=== PATIENT | female | born 1955 | race African-American/Black ===

== ENCOUNTER 2017-07-27 20:59 | Inpatient (IN) | payer MEDICARE, SELFPAY ==
[2017-07-27] MEDS ORDERED: Albuterol Sulfate 2.5 mg/0.5 ml Neb ONE ×2 (21:27→21:30)
[2017-07-27] MEDS ORDERED: Magnesium Sulfate 2 GM/NS 0.9% 50 ML BAG ONE (21:28)
[2017-07-27] MEDS ORDERED: methylPREDNISolone Sod Succ/PF 125 MG/2 ML VIAL ONE (21:28)
[2017-07-27] MEDS ORDERED: Water For Inject, Bacteriostat 30 ML ONE (21:28)
[2017-07-27] MEDS ORDERED: Ipratropium Bromide 2.5 ml Neb ONE (21:30)
[2017-07-27 21:31] LABS: #Basophils 0.1 thou/uL (0.0-0.2); #Lymphocytes 1.4 thou/uL (1.20-3.40); #Monocytes 0.4 thou/uL (0.11-0.59); %Basophils 0.7 % (0.0-1.0); %Eosinophils 8.5 % (0.0-10.0); %Lymphocytes 12.1 % (21.0-51.0); %Monocytes 3.3 % (0.0-10.0); %Neutrophils 75.4 % (42.0-75.0); Hemoglobin 14.4 g/dL (12.0-16.0); Mean Corpuscular HGB CONC 32.8 g/dL (32.0-36.0); Mean Corpuscular Hemoglobin 29.5 pg (27.0-31.0); Mean Corpuscular Volume 89.9 fl (81.0-99.0); Mean Platelet Volume 8.1 fL (7.4-10.4); Platelet Count 308 thou/uL (130-400); Red Blood Cell (RBC) Count 4.87 mill/uL (4.20-5.40); White Blood Cell (WBC) Count 11.9 thou/uL (4.8-10.8)
[2017-07-27 21:46] LABS: ALT (SGPT) 22 U/L (8-55); AST (SGOT) 30 U/L (5-34); Albumin 3.4 g/dL (3.5-5.0); Alkaline Phosphatase 93 U/L (40-150); Anion Gap 13 mmol/L (10-20); BUN (Urea Nitrogen) 14 mg/dL (9.8-20.1); Bilirubin, Total 0.3 mg/dL (0.2-1.2); Calc. Creatinine Clearance 0 mL/min (70-130); Calcium 9.6 mg/dL (7.8-10.44); Carbon Dioxide 29 mmol/L (22-29); Chloride 99 mmol/L (98-107); Estimated GFR-MDRD Greater than 90; Globulin 4.5 g/dL (2.4-3.5); Glucose 159 mg/dL (70-105); Potassium 4.2 mmol/L (3.5-5.1); Protein, Total 7.9 g/dL (6.0-8.3); Sodium 137 mmol/L (136-145)
[2017-07-27 21:47] LABS: Troponin I 0.014 ng/mL (< 0.028)
--- NOTE | 2017-07-27 22:03 | RAD ---
RADIOGRAPH CHEST 1 VIEW: 07/27/17 HISTORY: 62-year-old female with cough and dyspnea. FINDINGS: There is no air space density, pulmonary edema, or pneumothorax. The lateral costophrenic angles are sharp. IMPRESSION: No acute pulmonary findings. jn [] POS: [facility]
[2017-07-27] MEDS ORDERED: Ibuprofen 600 MG TAB ONE (23:28)
[2017-07-28] MEDS ORDERED: Ondansetron HCl/PF 4 MG/2 ML Vial IVP PRN (01:39)
[2017-07-28] MEDS ORDERED: Ondansetron ODT 4 MG TAB SL PRN (01:39)
[2017-07-28 02:11] VITALS: BMI 20.5
[2017-07-28] MEDS ORDERED: HYDROcodone/Acetaminophen 5/325 mg Tablet PO PRN (06:02)
[2017-07-28] MEDS ORDERED: Acetaminophen 325 MG TAB PO PRN (06:02)
[2017-07-28] MEDS ORDERED: Dextrose 50% Abboject 50 ML SYRINGE SLOW IVP PRN (06:02)
[2017-07-28] MEDS ORDERED: Guaifenesin DM 100-10/5 ML UDCUP PO PRN (06:02)
[2017-07-28] MEDS ORDERED: Albuterol Sulfate 2.5 mg/3 ml Neb NEB PRN (06:02)
[2017-07-28] MEDS ORDERED: Dextrose 5% in Water 1,000 ML IV PRN (06:02)
[2017-07-28] MEDS: HumaLOG 300 UNITS/3 ML VIAL SC PRN ×4 (06:40→22:01)
[2017-07-28 06:53] LABS: #Lymphocytes 1.1 thou/uL (1.20-3.40); #Neutrophils 5.9 thou/uL (1.40-6.50); %Eosinophils 0.3 % (0.0-10.0); %Lymphocytes 16.1 % (21.0-51.0); %Monocytes 0.3 % (0.0-10.0); %Neutrophils 83.2 % (42.0-75.0); Hemoglobin 13.1 g/dL (12.0-16.0); Mean Corpuscular HGB CONC 32.6 g/dL (32.0-36.0); Mean Corpuscular Hemoglobin 31.2 pg (27.0-31.0); Mean Corpuscular Volume 95.8 fl (81.0-99.0); Mean Platelet Volume 7.2 fL (7.4-10.4); Platelet Count 300 thou/uL (130-400); RBC Distribution Width 11.8 % (11.5-14.5); Red Blood Cell (RBC) Count 4.21 mill/uL (4.20-5.40); White Blood Cell (WBC) Count 7.1 thou/uL (4.8-10.8)
[2017-07-28 06:54] LABS: Anion Gap 11 mmol/L (10-20); BUN (Urea Nitrogen) 15 mg/dL (9.8-20.1); Calc. Creatinine Clearance 76 mL/min (70-130); Calcium 9.7 mg/dL (7.8-10.44); Carbon Dioxide 30 mmol/L (22-29); Chloride 99 mmol/L (98-107); Estimated GFR-MDRD Greater than 90; Glucose 277 mg/dL (70-105); Potassium 4.5 mmol/L (3.5-5.1); Sodium 135 mmol/L (136-145)
--- NOTE | 2017-07-28 07:33 | HP ---
DATE OF ADMISSION: 07/28/2017 TIME OF SERVICE: 0500 PRIMARY CARE PHYSICIAN: Out of town in a near [place], [place]. CHIEF COMPLAINT: Shortness of breath. HISTORY OF PRESENT ILLNESS: Ms. Kate is a pleasant 62-year-old female with his tory of COPD, fibromyalgia, systemic lupus erythematosus and insulin-dependent diabetes mellitus type 2 who lives in [place] near [place]. She works in different areas regularly and is down her e doing work on a job that is supposed to actually conclude today or tomorrow. She works at the [employer], does apparently some kind of sandblasting and normally wears a mask when she is working. She w ho not working, was moving across the facility when she walked through a large cloud of dust comprise d of sand and glass. She became progressively more short of breath, nonproductive cough and felt lik e she could not breathe, so decided to come to the Emergency Department for evaluation. She presente d to [facility] ER where she was found to be hypoxic at 88% on room air and had audible wh eezing. She was given nebulizer treatments and steroids and we were called for direct admission. On arrival, the patient was accepted to the floor. She said her breathing was slightly improved, but still not great. She denied any other current complaints. PAST MEDICAL HISTORY: 1. COPD. 2. Fibromyalgia. 3. Systemic lupus erythematosus. 4. Diabetes mellitus type 2, insulin-dependent. 5. Hyperlipidemia. 6. Elevated cholesterol 7. Hypertension, essential. 8. Obstructive sleep apnea on CPAP at bedtime. 9. History of DVT remotely. PAST SURGICAL HISTORY: 1. Includes PTCA with 1-2 stents placed. 2. Cholecystectomy. 3. Hysterectomy. 4. Tonsillectomy. HOME MEDICATIONS: 1. Advair 250/50 one puff b.i.d. 2. Albuterol MDI as needed 2 puffs q.4h. 3. Brilinta 90 mg daily. 4. Toprol-XL 25 mg daily. 5. Atorvastatin 40 mg p.o. at bedtime. 6. Oxycodone/acetaminophen 5/325 1-2 tabs by mouth every 6 hours as needed for pain. 7. Levothyroxine 200 mcg daily for hypothyroidism. 8. Nicotine patch 21 mg q.24h. 9. Pantoprazole 40 mg p.o. daily. 10. Aspirin 81 mg daily. 11. Lantus 36 units subq daily last picked up on 06/03/2017. ALLERGIES: PENICILLIN causes a rash. ASPIRIN causes a rash, but she still takes it because it is go od for her heart. FAMILY HISTORY: Significant for diabetes, heart problems. SOCIAL HISTORY: Significant for about a half pack of cigarettes per day for about 51 years. Negative for alcohol or IV drug use. REVIEW OF SYSTEMS: A 10-point review of systems was performed and negative for all systems except as per HPI. PHYSICAL EXAMINATION: VITAL SIGNS: Temperature is 98.3, pulse 95, blood pressure 160/74, respiratory rate 20, satting 94% on 2 liters nasal cannula. GENERAL: She is awake. She is alert. She is oriented x3. She is a well-developed, well-nourished female. HEENT: Normocephalic, atraumatic. Pupils equal, round, react to light bilaterally, mucous membranes moist. There are no visible lesions. She has no thrush. NECK: Supple, without lymphadenopathy, JVD, or thyromegaly. She has normal carotid upstrokes. I do not appreciate bruit. CHEST: Lungs are clear anteriorly, posteriorly she has coarse breath sounds, but no crackles. She h as a prolonged expiratory phase, but actually no wheezing at present. She is breathing audibly loud, but has no stridor and no wheezes heard. There is no rhonchi. CARDIOVASCULAR: She has normal cardiac and has a normal S1 and S2. She is a regular rhythm. There are no audible murmurs. ABDOMEN: Soft, is nontender, nondistended. She has good bowel sounds in all 4 quadrants. There is no rebound, rigidity or guarding. NEUROLOGIC: Cranial nerves II-XII grossly intact. She has normal speech, 5/5 strength, and no focal deficits. MUSCULOSKELETAL: Normal to inspection. She has no inflamed joints and no palpable effusions. LABORATORY DATA: Sodium is 137, potassium 4.2, chloride 99, bicarbonate 29, BUN 14, creatinine 0.66, glucose 159 and calcium 9.1. Liver functions are completely within normal limits. Her CBC showed a white count 11.9, hemoglobin 1 4.4, hematocrit of 43.8, and platelet count is 308,000. BNP is normal at 13.2. CK-MB is normal, 6.0 . Troponin I is normal at 0.014. Chest x-ray showed no acute cardiopulmonary disease. ASSESSMENT AND PLAN: 1. Acute exacerbation of chronic obstructive pulmonary disease. We will use IV Solu-Medrol, DuoNebs q.4h. and albuterol nebs q.2h. p.r.n., Mucinex 1200 b.i.d., levofloxacin 500 mg daily, and oxygen as needed. We will ask Pulmonary to evaluate. 2. Inhalational injury: No finding on chest x-ray, she is somewhat more short of breath. As above. 3. Systemic lupus erythematosus. No current rash or arthralgias. She will be on Solu-Medrol and pr ednisone for some time. 4. Insulin-dependent diabetes mellitus type 2. She does take Levemir. We will continue and use sli ding scale insulin for coverage. 5. Hyperlipidemia. 6. Hypercholesterolemia. She takes atorvastatin. We will hold for now. 7. Hypertension, essential, on enalapril and Toprol-XL. 8. Obstructive sleep apnea on at bedtime CPAP. She has an auto CPAP set at 4.0. 9. History of deep venous thrombosis, not currently on anticoagulation, but still does take Brilinta . Will place the patient on inpatient due to hypoxia. We will get serial nebulizer treatments and wean off oxygen as tolerated.
[2017-07-28] MEDS: Enoxaparin Sodium 40 MG/0.4 ML SYRINGE SC SCH (09:28)
[2017-07-28] MEDS: Famotidine 20 MG TAB PO SCH ×2 (09:29→21:56)
[2017-07-28] MEDS: HYDROcodone/Acetaminophen 10/325 mg Tablet PO PRN ×2 (11:09→18:40)
--- NOTE | 2017-07-28 14:11 | PDOC.EVN ---
Event Note - Event Note Event Note: Cc; dyspnea sub; pt says she feels better vs: stable cvs: s1s2 present, rrr, no rubs, no gallop RS: Dimnished at bases, no rhonchi GI: Soft, nttp, no guaridng, no rebound tenderness IT MANAGER: Awak,e follows commands psych: mood calm labs: stable plan: continue current treatment Monitor blood sugars continue solumedrol case d/w pt & RN
[2017-07-28] MEDS ORDERED: Polyethylene Glycol 3350 17 GM Packet PO SCH (16:00)
[2017-07-28] MEDS: Ondansetron ODT 4 MG TAB PO PRN (18:42)
[2017-07-29] MEDS: HYDROcodone/Acetaminophen 10/325 mg Tablet PO PRN ×4 (00:58→22:38)
[2017-07-29] MEDS: Ondansetron HCl/PF 4 MG/2 ML Vial IVP PRN (00:58)
[2017-07-29 06:06] LABS: #Lymphocytes 1.3 thou/uL (1.20-3.40); #Monocytes 0.2 thou/uL (0.11-0.59); #Neutrophils 11.3 thou/uL (1.40-6.50); %Basophils 0.2 % (0.0-1.0); %Eosinophils 0.1 % (0.0-10.0); %Lymphocytes 10.1 % (21.0-51.0); %Monocytes 1.2 % (0.0-10.0); %Neutrophils 88.4 % (42.0-75.0); Hemoglobin 12.3 g/dL (12.0-16.0); Mean Corpuscular HGB CONC 32.3 g/dL (32.0-36.0); Mean Corpuscular Hemoglobin 30.3 pg (27.0-31.0); Mean Platelet Volume 7.3 fL (7.4-10.4); Platelet Count 295 thou/uL (130-400); RBC Distribution Width 11.8 % (11.5-14.5); Red Blood Cell (RBC) Count 4.05 mill/uL (4.20-5.40); White Blood Cell (WBC) Count 12.7 thou/uL (4.8-10.8)
[2017-07-29 06:13] LABS: Anion Gap 10 mmol/L (10-20); BUN (Urea Nitrogen) 20 mg/dL (9.8-20.1); Calc. Creatinine Clearance 73 mL/min (70-130); Calcium 9.7 mg/dL (7.8-10.44); Carbon Dioxide 33 mmol/L (22-29); Chloride 97 mmol/L (98-107); Estimated GFR-MDRD 86; Glucose 234 mg/dL (70-105); Potassium 5.1 mmol/L (3.5-5.1); Sodium 135 mmol/L (136-145)
[2017-07-29] MEDS: HumaLOG 300 UNITS/3 ML VIAL SC PRN ×4 (06:38→22:07)
[2017-07-29] MEDS: Famotidine 20 MG TAB PO SCH ×2 (08:22→22:07)
[2017-07-29] MEDS: Enoxaparin Sodium 40 MG/0.4 ML SYRINGE SC SCH (08:22)
[2017-07-29] MEDS: Polyethylene Glycol 3350 17 GM Packet PO SCH (08:22)
[2017-07-29] MEDS ORDERED: Iopamidol 370 76% 100 ML VIAL ONE (10:12)
[2017-07-29] MEDS: Ondansetron ODT 4 MG TAB PO PRN ×2 (11:35→17:14)
--- NOTE | 2017-07-29 11:37 | PDOC.EVN ---
Event Note - Event Note Event Note: [id number] DC SUMMARY DICTATED
[2017-07-29] MEDS ORDERED: Non-Formulary Item 1 EACH (Metoclopramide Hcl [Metoclopramide Hcl] 5 MG) PO PRN (14:07)
--- NOTE | 2017-07-29 14:30 | DIS ---
DATE OF ADMISSION: 07/28/2017 DATE OF DISCHARGE: 07/29/2017 DISCHARGE DIAGNOSES: 1. Acute hypoxic respiratory failure. 2. Acute chronic obstructive pulmonary disease exacerbation. 3. Hypertension. 4. Hypothyroidism. 5. History of coronary artery disease. DISCHARGE CONDITION: Stable. DISPOSITION: Home. DISCHARGE MEDICATION: See med rec form. HISTORY OF PRESENT ILLNESS: See initial HPI. CONSULTANTS DURING THE HOSPITAL STAY: Pulmonary. HOSPITAL COURSE: The patient is a 62-year-old female admitted secondary to dyspnea. 1. Acute COPD exacerbation. The patient was treated with breathing treatments and IV steroids. Hawa early's breathing status improved. Patient is on having intermittent episodes of hypoxia, so CTA ches t was ordered. During the hospital stay, Pulmonary results were consulted. If CTA chest is negative and if Pulmonary clears, the patient will be discharged home today with p.o. prednisone taper. 2. History of hypertension. Blood pressure monitored during the hospital stay and was stable. Advis ed to continue the same medication. 3. History of hypothyroidism. The patient was advised to continue levothyroxine. On the day of dis charge, please see progress note for physical exam. DISCHARGE CONDITION: Stable. DISPOSITION: Home if cleared by Pulmonary and we will try to arrange for home oxygen also for the nayeli urenaferoz. Discharge time 40 minutes.
[2017-07-29] MEDS ORDERED: Metoclopramide HCl 10 MG TAB PO PRN (14:47)
--- NOTE | 2017-07-29 16:18 | CT ---
CT ANGIO OF CHEST PERFORMED WITH INTRAVENOUS CONTRAST ENHANCEMENT WITH 3D RECONSTRUCTIONS: 07/29/17 HISTORY: Shortness of breath. There are emphysematous lung changes seen. There is no focal infiltrative process or pulmonary nodule s. There is no significant mediastinal or hilar lymphadenopathy seen. The thoracic aorta is normal in caliber. There is atherosclerotic change. There is good pulmonary art janett opacification and no evidence for pulmonary embolus. The visualized liver parenchyma is unremarkable. Postop cholecystectomy changes are seen. IMPRESSION: 1. No CT evidence for pulmonary embolus. 2. Emphysematous lung change. POS: [facility]
[2017-07-29] MEDS: TICAGRELOR 90 MG TABLET PO SCH (22:07)
[2017-07-29] MEDS: Atorvastatin Calcium 40 MG TAB PO SCH (22:07)
[2017-07-29] MEDS: predniSONE 20 MG TAB PO SCH (22:07)
[2017-07-30] MEDS: HYDROcodone/Acetaminophen 10/325 mg Tablet PO PRN ×4 (04:05→16:56)
[2017-07-30] MEDS: Levothyroxine Sodium 100 MCG TAB PO SCH (06:03)
[2017-07-30] MEDS: HumaLOG 300 UNITS/3 ML VIAL SC PRN ×2 (07:31→17:57)
[2017-07-30] MEDS: Ondansetron HCl/PF 4 MG/2 ML Vial IVP PRN ×2 (08:50→14:37)
[2017-07-30] MEDS: predniSONE 20 MG TAB PO SCH (08:51)
[2017-07-30] MEDS: Aspirin 81 mg Enteric Coated Tablet PO SCH (08:53)
[2017-07-30] MEDS: TICAGRELOR 90 MG TABLET PO SCH ×2 (08:53→20:39)
[2017-07-30] MEDS: Polyethylene Glycol 3350 17 GM Packet PO SCH ×2 (08:53→08:55)
[2017-07-30] MEDS: Famotidine 20 MG TAB PO SCH ×2 (08:53→20:40)
[2017-07-30] MEDS ORDERED: Non-Formulary Item 1 EACH (Levothyroxine Sodium [Synthroid] 200 MCG) PO SCH (09:00)
[2017-07-30] MEDS: Enoxaparin Sodium 40 MG/0.4 ML SYRINGE SC SCH (10:12)
--- NOTE | 2017-07-30 11:44 | PDOC.PN ---
- Subjective Encounter Start Date: 07/30/17 Encounter Start Time: 07:00 Subjective: still has sob, is able to ambulate in room -: spo2 dips to 84% on mild exertion on room air -: no chest pain or palp - Objective Resuscitation Status: Resuscitation Status FULL:Full Resuscitation MAR Reviewed: Yes Vital Signs & Weight: Vital Signs (12 hours) Temp Pulse Resp BP BP Pulse Ox 07/30/17 11:10 98 F 90 20 151/74 H 97 07/30/17 08:45 98.6 F 76 20 127/60 98 07/30/17 07:10 98.6 F 76 20 127/60 98 07/30/17 06:28 76 15 07/30/17 04:00 98.5 F 80 16 141/84 H 97 07/30/17 00:00 97.5 F L 76 16 129/60 98 Weight Weight 138 lb I&O: 07/29/17 07/30/17 07/31/17 06:59 06:59 06:59 Intake Total 540 600 Balance 540 600 Result Diagrams: 07/29/17 05:26 07/29/17 05:26 Additional Labs: Accuchecks 07/30/17 07/30/17 07/29/17 10:42 04:59 20:24 POC Glucose 130 H 265 H 248 H 07/29/17 07/29/17 16:55 11:17 POC Glucose 304 H 239 H Phys Exam - Physical Examination HEENT: PERRLA, moist MMs Neck: no JVD, supple Respiratory: no wheezing, no rales rhonchi++ Cardiovascular: RRR, no significant murmur Gastrointestinal: soft, non-tender, positive bowel sounds Musculoskeletal: no edema, pulses present Neurological: non-focal, moves all 4 limbs Psychiatric: normal affect, A&O x 3 Dx/Plan (1) COPD exacerbation Code(s): J44.1 - CHRONIC OBSTRUCTIVE PULMONARY DISEASE W (ACUTE) EXACERBATION Status: Acute (2) Acute respiratory failure with hypoxia Code(s): J96.01 - ACUTE RESPIRATORY FAILURE WITH HYPOXIA Status: Acute (3) HTN (hypertension) Code(s): I10 - ESSENTIAL (PRIMARY) HYPERTENSION Status: Chronic Qualifiers: Hypertension type: essential hypertension Qualified Code(s): I10 - Essential (primary) hypertension (4) CAD (coronary artery disease) Code(s): I25.10 - ATHSCL HEART DISEASE OF [place] CORONARY ARTERY W/O ANG PCTRS Status: Chronic Qualifiers: Coronary Disease-Associated Artery/Lesion type: [place] artery [place] vs. transplanted heart: [place] heart Associated angina: without angina Qualified Code(s): I25.10 - Atherosclerotic heart disease of [place] coronary artery without angina pectoris (5) H/O systemic lupus erythematosus (SLE) Code(s): Z87.39 - PERSONAL HISTORY OF DISEASES OF THE MS SYS AND CONN TISS Status: Chronic (6) DM type 2 (diabetes mellitus, type 2) Status: Chronic Qualifiers: Diabetes mellitus intermediate project manager insulin use: without intermediate project manager use Diabetes mellitus complication status: with unspecified complications Qualified Code(s) : E11.8 - Type 2 diabetes mellitus with unspecified complications - Plan duonebs, steroids, empiric levaquin -: pt is on asp and brilinta for stent and cad -: may tx to med floor -: will likely need home oxygen if she continues at 84% on ra on exertion -: change status to inpt * . Review of Systems - Medications/Allergies Allergies/Adverse Reactions: Allergies Allergy/AdvReac Type Severity Reaction Status Date / Time Penicillins Allergy Mild Verified 07/28/17 02:08 aspirin Allergy Hives Verified 07/28/17 02:08 Medications: Current Medications Acetaminophen (Tylenol) 650 mg PO Q4H PRN PRN Reason: Headache/Fever or Pain Hydrocodone Bitart/Acetaminophen ([place] 10/325) 1 tab PO Q4H PRN PRN Reason: Severe Pain (7-10) Last Admin: 07/30/17 08:52 Dose: 1 tab Hydrocodone Bitart/Acetaminophen ([place] 5/325) 1 tab PO Q4H PRN PRN Reason: Moderate Pain (4-6) Last Admin: 07/28/17 06:39 Dose: 1 tab Albuterol Sulfate (Ventolin) 2.5 mg NEB Q2H PRN PRN Reason: Wheezing Albuterol/Ipratropium (Duoneb) 3 ml NEB [id number] [facility] Last Admin: 07/30/17 10:31 Dose: Not Given Aspirin (Ecotrin) 81 mg PO DAILY [facility] Last Admin: 07/30/17 08:53 Dose: 81 mg Atorvastatin Calcium (Lipitor) 40 mg PO HS [facility] Last Admin: 07/29/17 22:07 Dose: 40 mg Dextrose/Water (Dextrose 50%) 25 gm SLOW IVP PRN PRN PRN Reason: Hypoglycemia Enoxaparin Sodium (Lovenox) 40 mg SC 0900 [facility] Last Admin: 07/30/17 10:12 Dose: Not Given Famotidine (Pepcid) 20 mg PO BID [facility] Last Admin: 07/30/17 08:53 Dose: 20 mg Glucagon (Glucagon) 1 mg IM PRN PRN PRN Reason: Hypoglycemia Guaifenesin/Dextromethorphan (Robitussin Dm) 15 ml PO Q4H PRN PRN Reason: Cough Dextrose/Water (D5w) 1,000 mls @ 0 mls/hr IV .Q0M PRN; As Directed PRN Reason: Hypoglycemia Levofloxacin 750 mg/ Device 150 mls @ 100 mls/hr IVPB Q24HR [facility] Last Admin: 07/30/17 06:01 Dose: 150 mls Insulin Human Lispro (Humalog) 0 units SC .MODERATE SLIDING SC PRN PRN Reason: Moderate Correctional Scale Last Admin: 07/30/17 07:31 Dose: 6 unit Levothyroxine Sodium (Synthroid) 200 mcg PO 0600 [facility] Last Admin: 07/30/17 06:03 Dose: 200 mcg Methylprednisolone Sodium Succinate (Solu-Medrol) 40 mg IVP Q6HR [facility] Metoclopramide HCl (Reglan) 5 mg PO QIDPRN PRN PRN Reason: Nausea Metoprolol Succinate (Toprol Xl) 25 mg PO DAILY [facility] Last Admin: 07/30/17 08:52 Dose: 25 mg Ondansetron HCl (Zofran Odt) 4 mg PO Q6H PRN PRN Reason: Nausea/Vomiting Last Admin: 07/29/17 17:14 Dose: 4 mg Ondansetron HCl (Zofran) 4 mg IVP Q6H PRN PRN Reason: Nausea/Vomiting Last Admin: 07/30/17 08:50 Dose: 4 mg Pantoprazole Sodium (Protonix) 40 mg PO DAILY [facility] Last Admin: 07/30/17 08:53 Dose: 40 mg Polyethylene Glycol (Miralax) 17 gm PO DAILY [facility] Last Admin: 07/30/17 08:55 Dose: Not Given Sodium Chloride (Flush - Normal Saline) 10 ml IVF Q12HR [facility] Last Admin: 07/29/17 22:08 Dose: 10 ml Sodium Chloride (Flush - Normal Saline) 10 ml IVF PRN PRN PRN Reason: Saline Flush Ticagrelor (Brilinta) 90 mg PO BID [facility] Last Admin: 07/30/17 08:53 Dose: 90 mg
--- NOTE | 2017-07-30 17:15 | CON ---
DATE OF CONSULTATION: 07/30/2017 CONSULTING PHYSICIAN: Dr. Escalona from the Hospitalist group. REASON FOR CONSULTATION: Hypoxemia. HISTORY OF PRESENT ILLNESS: This patient is a 62-year-old -[place] female who is from the [place], [place] area. 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 She was apparently exposed to some type of dust at work. Shortly afterwards, she began wheezing and coughing. She presented to the hospital and was found to be hypoxic with O2 sat of 88%. She was given breathing treatments, steroids, and has improved from that standpoint. The patient has nocturnal hypoxemia and wears oxygen at night with CPAP. She was found to have continued exertional hypoxemia while in the hospital. She is actually showing normal, O2 sats at rest on room air. She was diagnosed with COPD several years ago. She smokes about half pack of cigarettes per day and has done so for most of her adult life. PAST MEDICAL HISTORY: 1. COPD. 2. Fibromyalgia. 3. Lupus. 4. Diabetes mellitus type 2 requiring insulin. 5. Hyperlipidemia. 6. Hypertension. 7. Obstructive sleep apnea. 8. Nocturnal hypoxemia. 9. DVT. PAST SURGICAL HISTORY: 1. PTCA. 2. Cholecystectomy. 3. Hysterectomy. 4. Tonsillectomy. MEDICATIONS PRIOR TO ADMISSION: Advair, albuterol, Brilinta, Toprol-XL, atorvastatin, oxycodone, levothyroxine, nicotine patch, pantoprazole, aspirin, Lantus insulin. ALLERGIES: PENICILLIN and ASPIRIN. FAMILY MEDICAL HISTORY: Remarkable for diabetes. SOCIAL HISTORY: Smoking history as outlined above. Does not drink, does not use illicit drugs. REVIEW OF SYSTEMS: Twelve point review of systems is otherwise negative. PHYSICAL EXAMINATION: VITAL SIGNS: Temperature 98.0, pulse 90, respirations 20. O2 sat was 95% on room air at rest. She desaturates to 84% on room air with exertion. Blood pressure 151/74. GENERAL: She is awake and alert. HEENT: Her face looks almost like chronic scleroderma in appearance with tight skin. Oropharynx is dry. NECK: No JVD, bruits. CARDIOVASCULAR: S1, S2 regular, without murmur. LUNGS: No wheezing, rhonchi or rales. ABDOMEN: Soft and nontender. EXTREMITIES: No clubbing, cyanosis, or edema. SKIN: Shows no bruising, rashes or jaundice. LABORATORY DATA: Sodium 135, potassium 5.1, chloride 97, CO2 of 33, BUN 20, creatinine 0.8, glucose 248. White blood cell count 12.7, hematocrit 38.1, platelet count 295. Chest x-ray shows hyperinflation without evidence of mass, effusion, or infiltrate. CT pulmonary angiogram showed no evidence of pulmonary emboli. ASSESSMENT: 1. Chronic obstructive pulmonary disease with exacerbation, which has improved expectantly with treatment. 2. Hypoxemia. This is probably a chronic problem given her nocturnal hypoxemia. I have a feeling she probably desaturates with any exertion. RECOMMENDATIONS: I think the patient is probably safe for discharge. She needs to be on a steroid taper over 2 weeks and continue her bronchodilator regimen. She needs access to a rescue inhaler. In terms of flying, she needs oxygen at 2 liters nasal cannula for the duration in the flight as most cabins are pressurized about 8000 feet. I am not sure that waiting several days is going to make any difference in her need for oxygen in flight. Again, I have a feeling she is chronically hypoxemic on a daily basis. The showcase maker tells me they are having difficulty arranging oxygen. That is something that the patient is going to have to work out with oxygen companies. Her current level of care does not necessitate continue hospitalization. 70 min. time spent on this consultation. Of that time, greater than 50% of the time was spent with the patient and/or on the patient's floor. [place]
[2017-07-30] MEDS: Mometasone/Formoterol 120 PUFF INHALER INH SCH (19:16)
[2017-07-30] MEDS: Insulin Detemir 100 UNITS/ML 10 UNITS in Pre-Filled Syringe 1 EACH SC SCH (20:39)
[2017-07-30] MEDS: Atorvastatin Calcium 40 MG TAB PO SCH (20:40)
[2017-07-31] MEDS: HYDROcodone/Acetaminophen 10/325 mg Tablet PO PRN ×3 (00:27→15:58)
[2017-07-31] MEDS: Levothyroxine Sodium 100 MCG TAB PO SCH (05:32)
[2017-07-31] MEDS: Mometasone/Formoterol 120 PUFF INHALER INH SCH ×2 (07:16→19:07)
[2017-07-31] MEDS: Famotidine 20 MG TAB PO SCH ×2 (08:45→21:05)
[2017-07-31] MEDS: Enoxaparin Sodium 40 MG/0.4 ML SYRINGE SC SCH (08:45)
[2017-07-31] MEDS: Aspirin 81 mg Enteric Coated Tablet PO SCH (08:45)
[2017-07-31] MEDS: Insulin Detemir 100 UNITS/ML 10 UNITS in Pre-Filled Syringe 1 EACH SC SCH ×2 (08:45→21:05)
[2017-07-31] MEDS: Polyethylene Glycol 3350 17 GM Packet PO SCH (08:47)
[2017-07-31] MEDS: TICAGRELOR 90 MG TABLET PO SCH ×2 (11:23→21:05)
[2017-07-31] MEDS: HumaLOG 300 UNITS/3 ML VIAL SC PRN ×2 (12:16→18:30)
--- NOTE | 2017-07-31 13:43 | PDOC.PN ---
- Subjective Encounter Start Date: 07/31/17 Encounter Start Time: 10:00 Subjective: breathing better -: spo2 of 85% on exertion - Objective MAR Reviewed: Yes Vital Signs & Weight: Vital Signs (12 hours) Temp Pulse Resp BP Pulse Ox 07/31/17 11:56 98.9 F 79 14 136/84 93 L 07/31/17 11:15 72 12 07/31/17 08:00 97.5 F L 72 12 100/74 98 07/31/17 07:16 82 12 07/31/17 07:08 82 12 95 07/31/17 06:33 98.2 F 70 16 123/68 94 L I&O: 07/30/17 07/31/17 08/01/17 06:59 06:59 06:59 Intake Total 500 Balance 500 Result Diagrams: 07/29/17 05:26 07/29/17 05:26 Additional Labs: Accuchecks 07/31/17 07/30/17 07/30/17 05:33 20:39 17:18 POC Glucose 157 H 175 H 260 H Phys Exam - Physical Examination HEENT: PERRLA, moist MMs Neck: no JVD, supple Respiratory: no wheezing, no rales rhonchi+ Cardiovascular: RRR, no significant murmur Gastrointestinal: soft, non-tender, positive bowel sounds Musculoskeletal: no edema, pulses present Neurological: non-focal, moves all 4 limbs Psychiatric: normal affect, A&O x 3 Dx/Plan (1) COPD exacerbation Code(s): J44.1 - CHRONIC OBSTRUCTIVE PULMONARY DISEASE W (ACUTE) EXACERBATION Status: Acute (2) Acute respiratory failure with hypoxia Code(s): J96.01 - ACUTE RESPIRATORY FAILURE WITH HYPOXIA Status: Acute (3) HTN (hypertension) Code(s): I10 - ESSENTIAL (PRIMARY) HYPERTENSION Status: Chronic Qualifiers: Hypertension type: essential hypertension Qualified Code(s): I10 - Essential (primary) hypertension (4) CAD (coronary artery disease) Code(s): I25.10 - ATHSCL HEART DISEASE OF [place] CORONARY ARTERY W/O ANG PCTRS Status: Chronic Qualifiers: Coronary Disease-Associated Artery/Lesion type: [place] artery [place] vs. transplanted heart: [place] heart Associated angina: without angina Qualified Code(s): I25.10 - Atherosclerotic heart disease of [place] coronary artery without angina pectoris (5) H/O systemic lupus erythematosus (SLE) Code(s): Z87.39 - PERSONAL HISTORY OF DISEASES OF THE MS SYS AND CONN TISS Status: Chronic (6) DM type 2 (diabetes mellitus, type 2) Status: Chronic Qualifiers: Diabetes mellitus correction insulin use: without correction use Diabetes mellitus complication status: with unspecified complications Qualified Code(s) : E11.8 - Type 2 diabetes mellitus with unspecified complications - Plan is awaiting home oxygen set up -: may dc anytime if above is set up -: has improved significantly from admission -: levaquin, nebs, steroids * .
--- NOTE | 2017-07-31 15:45 | PRG ---
DATE OF SERVICE: 07/31/2017 SUBJECTIVE: The patient is doing well and says she is going home later today. PHYSICAL EXAMINATION: VITAL SIGNS: Temperature is 98.9, pulse 79, respirations 14, O2 sat 93%, blood pressure 136/84. HEENT: Unremarkable. NECK: No JVD. CHEST: Clear. CARDIAC: S1 and S2 regular. ABDOMEN: Soft. EXTREMITIES: No edema. ASSESSMENT: 1. Desaturation with exertion. 2. Underlying chronic obstructive pulmonary disease. PLAN: Apparently, patient is getting oxygen arranged for her flight home. She is cleared for discha rge today as there is nothing else to be done. She needs to refrain from smoking. She needs to comp lete a week of antibiotics and have her steroids tapered down over 2 weeks.
[2017-07-31] MEDS: Ondansetron ODT 4 MG TAB PO PRN (15:58)
[2017-07-31] MEDS: Atorvastatin Calcium 40 MG TAB PO SCH (21:14)
[2017-08-01] MEDS: HYDROcodone/Acetaminophen 10/325 mg Tablet PO PRN (04:41)
[2017-08-01] MEDS: HumaLOG 300 UNITS/3 ML VIAL SC PRN (06:00)
[2017-08-01] MEDS: Levothyroxine Sodium 100 MCG TAB PO SCH (06:00)
[2017-08-01 07:42] VITALS: BP 107/57; TEMP 97.8
[2017-08-01] MEDS: Enoxaparin Sodium 40 MG/0.4 ML SYRINGE SC SCH (08:02)
[2017-08-01] MEDS: Polyethylene Glycol 3350 17 GM Packet PO SCH ×2 (08:02→08:25)
[2017-08-01] MEDS: Aspirin 81 mg Enteric Coated Tablet PO SCH (08:03)
[2017-08-01] MEDS: Famotidine 20 MG TAB PO SCH (08:03)
[2017-08-01] MEDS: TICAGRELOR 90 MG TABLET PO SCH (08:36)
[2017-08-01] MEDS: Mometasone/Formoterol 120 PUFF INHALER INH SCH (09:32)
--- NOTE | 2017-08-01 14:17 | DIS ---
DATE OF ADMISSION: 07/28/2017 DISCHARGE DISPOSITION: 08/01/2017. PRIMARY DISCHARGE DIAGNOSES: Acute chronic obstructive pulmonary disease exacerbation, acute respira tory failure with hypoxia resolved. SECONDARY DISCHARGE DIAGNOSES: Hypertension, coronary artery disease, systemic lupus erythematosus, and diabetes mellitus type 2. PROCEDURES DONE DURING HOSPITALIZATION: CT angio chest done showed no evidence of pulmonary embolus. There were emphysematous lung changes seen. BNP was 13. DISCHARGE MEDICATIONS: Levaquin 500 mg p.o. daily for another 7 days, prednisone tapering dose start ing at 10 mg 3 times daily over a course of 19 days, Brilinta 90 mg p.o. twice daily, Toprol-XL 25 mg p.o. daily, Synthroid 200 mcg p.o. daily, Pepcid 20 mg twice daily, etodolac 400 mg p.o. daily, Lipi tor 40 mg p.o. at bedtime, aspirin 81 mg p.o. daily, and albuterol inhaler q.6 hourly p.r.n. ALLERGIES: PENICILLIN and ASPIRIN. INPATIENT CONSULTS: Dr. Hurley for Pulmonology. DISCHARGE PLAN: Patient to follow up with her primary care physician in 1 week. BRIEF COURSE DURING HOSPITALIZATION: Patient initially came with complaints of shortness of breath. 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 She got exposed to dust and had underlying COPD as well. Patient was essentially admitted for acute on chronic COPD exacerbation with acute hypoxic respiratory failure. She was placed on steroids, nebulizers, and empiric antibio tics. The patient has responded well to above measures. She is currently saturating 97% on ambulati on. This is on room air. She is hemodynamically stable and will be shortly discharged home. The nayeli fry is cleared for flying back to her [employer] flight if needed. Please see a face to face documentation on [facility] for the day of discharge.
--- NOTE | 2017-08-01 14:17 | PDOC.PN ---
- Subjective Encounter Start Date: 08/01/17 Encounter Start Time: 09:35 Subjective: feels better -: is amb in hallway on room air - Objective MAR Reviewed: Yes Vital Signs & Weight: Vital Signs (12 hours) Temp Pulse Resp BP Pulse Ox 08/01/17 08:00 97.8 F 78 18 95 08/01/17 07:10 97.8 F 78 18 107/57 L 97 08/01/17 04:43 98.5 F 74 16 117/63 99 I&O: 07/31/17 08/01/17 08/02/17 06:59 06:59 06:59 Intake Total 500 600 Balance 500 600 Result Diagrams: 07/29/17 05:26 07/29/17 05:26 Additional Labs: Accuchecks 08/01/17 07/31/17 07/31/17 05:07 20:02 16:27 POC Glucose 286 H 171 H 174 H 07/31/17 10:58 POC Glucose 209 H Phys Exam - Physical Examination HEENT: PERRLA, moist MMs Neck: no JVD, supple Respiratory: no wheezing, no rales rhonchi+ Cardiovascular: RRR, no significant murmur Gastrointestinal: soft, non-tender, positive bowel sounds Musculoskeletal: no edema, pulses present Neurological: non-focal, moves all 4 limbs Psychiatric: A&O x 3 Dx/Plan (1) COPD exacerbation Code(s): J44.1 - CHRONIC OBSTRUCTIVE PULMONARY DISEASE W (ACUTE) EXACERBATION Status: Acute (2) Acute respiratory failure with hypoxia Code(s): J96.01 - ACUTE RESPIRATORY FAILURE WITH HYPOXIA Status: Resolved (3) HTN (hypertension) Code(s): I10 - ESSENTIAL (PRIMARY) HYPERTENSION Status: Chronic Qualifiers: Hypertension type: essential hypertension Qualified Code(s): I10 - Essential (primary) hypertension (4) CAD (coronary artery disease) Code(s): I25.10 - ATHSCL HEART DISEASE OF [place] CORONARY ARTERY W/O ANG PCTRS Status: Chronic Qualifiers: Coronary Disease-Associated Artery/Lesion type: [place] artery [place] vs. transplanted heart: [place] heart Associated angina: without angina Qualified Code(s): I25.10 - Atherosclerotic heart disease of [place] coronary artery without angina pectoris (5) H/O systemic lupus erythematosus (SLE) Code(s): Z87.39 - PERSONAL HISTORY OF DISEASES OF THE MS SYS AND CONN TISS Status: Chronic (6) DM type 2 (diabetes mellitus, type 2) Status: Chronic Qualifiers: Diabetes mellitus oil heat[place] insulin use: without intermediate use Diabetes mellitus complication status: with unspecified complications Qualified Code(s) : E11.8 - Type 2 diabetes mellitus with unspecified complications - Plan hemostable -: spo2 of 95% on room air while ambulating -: cleared for dc home and flying if needed -: to f/u with her pcp in 1 week -: prescriptions have been faxed for tapering steroids/antibiotics * .
[2017-08-04 14:22] LABS: Aspergillus fumigatus Negative (Negative); Aureobasidium pullalans IgG Negative (Negative); Micropolyspora faeni Negative (Negative); Pigeon Droppings IgG Negative (Negative); T sacchari Negative (Negative); T vulgaris Negative (Negative)
== END 2017-08-01 08:53 | disposition home or self-care (01) | DRG 189 ==
LOC: SCSER 20:59 → 2SE 07-28 01:25 → OBSVTOIN 07-30 11:40
PROVIDERS: ADMIT Internal Medicine Infectious Disease; ATTEND Internal Medicine Infectious Disease
DX: J96.01 Acute respiratory failure with hypoxia (principal); M32.9 Systemic lupus erythematosus, unspecified; Z99.81 Dependence on supplemental oxygen; J44.1 Chronic obstructive pulmonary disease with (acute) exacerbation; I25.10 Atherosclerotic heart disease of native coronary artery without angina pectoris; E78.00 Pure hypercholesterolemia, unspecified; I10 Essential (primary) hypertension; E11.9 Type 2 diabetes mellitus without complications; E03.9 Hypothyroidism, unspecified; F17.210 Nicotine dependence, cigarettes, uncomplicated; M79.7 Fibromyalgia; G47.33 Obstructive sleep apnea (adult) (pediatric); Z86.718 Personal history of other venous thrombosis and embolism; Z95.5 Presence of coronary angioplasty implant and graft; Z79.02 Long term (current) use of antithrombotics/antiplatelets; Z79.82 Long term (current) use of aspirin; Z79.4 Long term (current) use of insulin; Z57.2 Occupational exposure to dust
CPT/HCPCS: 36415; 36416; 71045; 71275; 80048; 80053; 82553; 83880; 84484; 85025; 86331; 86602; 86606; 86671; 93005; 94640; 94644; 94664; 94760; 96365; 96375; 99406; A4216; J1650; J1815; J1956; J2405; J2920; J2930; J3475; J7506; J7611; J7620; J7644; Q0162